=== PATIENT | female | born 1975 | race Caucasian/White ===

== ENCOUNTER 2018-07-29 12:20 | Outpatient (CLI) | END 2018-07-29 14:55 | disposition left against medical advice (07) ==

== ENCOUNTER 2018-07-30 05:02 | Inpatient (IN) | payer MEDICAID ==
--- NOTE | 2018-07-29 15:46 | PN ---
Triage Information Date/Time Reason for visit: Uterine contractions Weeks of Gestation 38+ /Para 4/2 Diabetes: none Hypertention: none Objective Heart Rate: 140's Contractions: 6-10 Minutes Apart Assessment/Plan Patient is admitted for 24 hours observation for her blood show/She left AMA She will follow up with her provider Precautions discussed Questions answered CHAD WALKER M.D. Jul 29, 2018 15:46
[~2018-07-30] VITALS: Ht 144.8 cm; Wt 63.0 kg
[~2018-07-30 05:02] MED LIST: PREN1TAB49
[2018-07-30] MEDS ORDERED: LACTATED RINGER'S 1,000 ML IV SCH (05:07)
[2018-07-30 05:11] VITALS: Ht 144.8 cm; Wt 63.0 kg
[2018-07-30] MEDS ORDERED: AMPICILLIN 2 GM/NS (PMX) 100 ML IV ONE (05:30)
[2018-07-30] MEDS ORDERED: CARBOPROST 250 MCG INJ IM PRN ×2 (05:30→07:00)
[2018-07-30] MEDS ORDERED: METHYLERGONOVINE 0.2 MG INJ IM PRN ×2 (05:30→07:00)
[2018-07-30] MEDS ORDERED: LIDOCAINE 1% (MPF) 30 ML INJ INJ PRN (05:30)
[2018-07-30] MEDS ORDERED: BUTORPHANOL 2 MG INJ IV PRN (05:30)
[2018-07-30] MEDS ORDERED: OXYTOCIN 30 UNITS/LR 500 ML IV PRN ×2 (05:30→07:00)
[2018-07-30] MEDS ORDERED: MISOPROSTOL 200 MCG TAB PR PRN ×2 (05:30→07:00)
[2018-07-30] MEDS ORDERED: OXYTOCIN 30 UNITS/LR 500 ML IV SCH ×2 (05:30)
--- NOTE | 2018-07-30 05:30 | TRIAGE ---
OB Triage Datetime Report Generated by CPN: 07/30/2018 05:30 Datetime: 07/30/2018 05:21 Vaginal Bleeding: None Level of Consciousness: Fully Conscious DTR's/Clonus: DTRs 2+; No Clonus Headache: Denies Blurred Vision: No Respiratory Effort: Unlabored; Regular Rhythm; Equal Expansion Breath Sounds, Left: Clear and Equal Breath Sounds, Right: Clear and Equal Nausea/Vomiting: Denies RUQ Epigastric Pain: Denies Facial Edema: None History of Falling: (0) No Secondary Diagnosis: (0) No Ambulatory Aid: (0) Bedrest/Nurse Assist Gait: (0) Normal/Bedrest/Immobile Mental Status: (0) Oriented to Own Ability Datetime: 07/30/2018 05:15 Time of Arrival: 07/30/2018 04:55 EGA: 38.1 Arrived By: Wheelchair Arrived From: Home Chief Complaint: SROM AT 0430 CLEAR, LOTS OF FLUID CONTRACTIONS SINCE YESTERDAY 1900 STATED SOMETHING IS COMING OUT Movement: Present Time Contractions Began: 07/29/2018 19:00 Rupture of Membranes: Ruptured Vaginal Discharge: Present Time Provider Notified: 07/30/2018 05:05 Provider Notified: CIRA Initial Plan: EFM, VE Datetime: 07/30/2018 05:00 Assessment Type: Triage Level of Consciousness: Fully Conscious DTR's/Clonus: DTRs 2+; No Clonus Headache: Denies Blurred Vision: No Respiratory Effort: Unlabored; Regular Rhythm; Equal Expansion Breath Sounds, Left: Clear and Equal Breath Sounds, Right: Clear and Equal Nausea/Vomiting: Denies RUQ Epigastric Pain: Denies Lower Extremities Edema: None Upper Extremities Edema: None Facial Edema: None History of Falling: (0) No Secondary Diagnosis: (0) No Ambulatory Aid: (0) Bedrest/Nurse Assist IV Therapy: (0) No Gait: (0) Normal/Bedrest/Immobile Mental Status: (0) Oriented to Own Ability Fall Score: 0 Fall Risk Score Definition: No Risk: No action required Datetime: 07/29/2018 13:08 Stage of : OB Triage Level of Consciousness: Fully Conscious Frequency: 2-7 Monitor Mode: External Duration (sec)2399: 40-100 Quality: Mild Resting Tone [place]: Relaxed FHR Baseline Rate: 145 Monitor Mode: External US Variability: Moderate 6-25 bpm Accelerations: 15X15 Decelerations: None Category: Category I Pain Scale: 0 Pain Goal: 3 Membrane Status: Intact Vaginal Bleeding: Scant Datetime: 07/29/2018 12:32 Fall Score: 0 Fall Risk Score Definition: No Risk: No action required Datetime: 07/29/2018 12:29 EGA: 38.0
--- NOTE | 2018-07-30 06:48 | HP ---
Date/Time of Note Date/Time of Note DATE: 07/30/18 TIME: 06:41 OB - History Hx of Present Free Text/Dictation 43 years old 4 para 20 1 1 with single intrauterine at 38 weeks and 1 day complaining of uterine contractions and leakage of fluid at 4:30 AM this morning. She states good movement. She denies nausea, vomiting, shortness of breath, chest pain, headache, visual changes, vaginal bleeding. Chief Complaint: Uterine contractions, leakage of fluid Estimated Due Date: Aug 12, 2017 : 4 Para: 2 Spontaneous : 1 Therapeutic : 0 Care: Good Care Ultrasounds: Normal mid trimester US Obstetrical Complications: None Medical Complications: None Past Family/Social History * Past Medical, Surgical, Family and Obstetric Histories reviewed from chart. OB Admission Exam Vital Signs Vital Signs Blood pressure 131/69, pulse rate 76/minutes, respiratory rate 16/minutes, temperature 98.3 Physical Exam HEENT: WNL Heart: Rhythm Normal Lungs: Clear Abdomen: WNL Extremities: Normal Cervical Dilatation: 7cm Effacement: Other (90%) Station: -2 Membranes: Intact Heart Rate: 130's Accelerations: Accelerations Present Decelerations: No Decelerations Varibility: Moderate Contractions on Admission: < 5 Minutes Apart Intensity: Firm Last 72 hours Lab Results CBC & BMP 07/30/18 05:00 OB Assessment/Plan Other plan: 43-year-old at 38 weeks and 1 day with spontaneous rupture of membranes in active labor - FHR: No sign of metabolic acidosis- Category I - Continuous EFM, toco - CBC, blood type and screen - Analgesia options with R/B/A discussed in detail with patient - Epidural per patient request - Please see the orders - Obtain records Admission, procedures, expectations, risks and possible complications have been discussed in detail with the patient. Risk of vaginal delivery including but not limited to bleeding, infection, cervical laceration, placental retention, injury to fetus, blood transfusion, blood transfusion related infection, risk of anesthesia, adhesion, cervical laceration, episiotomy/laceration, possible delivery with risk of bleeding, infection, injury to other organs (bowel, bladder, ureter, vessels, nerves), injury to fetus, blood transfusion, blood transfusion related infection, risk of anesthesia, scar and hernia formation, needs for future , removal of uterus or any other indicated surgery discussed with the patient. She expressed understanding and repeats the risks. All of her questions were answered. She signed the informed consent. PHYSICIAN'S VERIFICATION OF INFORMED CONSENT The patient was counseled regarding the procedure, its indications, risks, pote ntial complications and alternatives and any questions were answered. Consent was obtained. PLANNED PROCEDURE/TREATMENT: Vaginal delivery, episiotomy, repair of laceration possible delivery PEÑA AYALA Jul 30, 2018 06:48
[2018-07-30] MEDS ORDERED: DEXTROSE 5%-LR 1,000 ML IV SCH (06:51)
[2018-07-30] MEDS ORDERED: LACTATED RINGER'S 1,000 ML IV* SCH (06:51)
--- NOTE | 2018-07-30 06:51 | LDN ---
Date/Time of Note Date/Time of Note DATE: 07/30/18 TIME: 06:48 Delivery Summary 43-year-old at 38 weeks and 1 day delivered a viable female over intact perineum. Nose and mouth suctioned free. Rest of body delivered. Cord clamped and cut. Baby given to the nurse. Placenta delivered intact and spontaneously with three-vessel cord. Patient tolerated procedure well Time of delivery 05: 48 Weight 7 pounds 14 ounces - 3560 g 7 at 1 minutes and 9 at 5 minutes EBL 150 Weeks of Gestation 38 weeks and 1 day Placenta Delivered: Spontaneously Meconium: none Episiotomy: No Anesthesia type: None Estimated blood loss: 150 Sponge & Needle done & correct: Yes All needle counts correct: Yes Any foreign bodies felt in the: No Infant Delivery Information Sex Infant Sex: female Apgars 1 Minute: 7 5 Minute: 9 10 Minute: 10 Suctioning Nose & mouth suctioned at julio: Yes Umbilical Cord Umbilical cord with: 3 Vessels Cord presentations: no nuchal cord Cord Blood was obtained: Yes Mother & Baby Disposition Disposition Mom & Baby to Maternity; Good: Yes PEÑA AYALA Jul 30, 2018 06:51
[2018-07-30] MEDS ORDERED: DIBUCAINE 1% 30 GM OINT TOP PRN (07:00)
[2018-07-30] MEDS ORDERED: DIPHENHYDRAMINE 50 MG INJ IV PRN (07:00)
[2018-07-30] MEDS ORDERED: ZOLPIDEM 5 MG TAB PO PRN (07:00)
[2018-07-30] MEDS ORDERED: ONDANSETRON 4 MG INJ IV PRN (07:00)
[2018-07-30] MEDS ORDERED: OXYCODONE/ASPIRIN (4.88/325) TAB PO PRN (07:00)
[2018-07-30] MEDS ORDERED: ACETAMINOPHEN 325 MG TAB PO PRN (07:00)
[2018-07-30] MEDS ORDERED: WITCH HAZEL/GLYCERIN PAD PR PRN (07:00)
[2018-07-30] MEDS ORDERED: BENZOCAINE 20% 56 ML SPRAY TOP PRN (07:00)
[2018-07-30] MEDS ORDERED: IBUPROFEN 600 MG TAB ONE (07:51)
[2018-07-30] MEDS: IBUPROFEN 600 MG TAB PO SCH ×3 (07:54→17:57)
[2018-07-30 08:40] VITALS: BP 132/69; PULSE 71; RESP 18
--- NOTE | 2018-07-30 08:40 | NUR ---
RECEIVED PT TO ROOM 319 IN STABLE CONDITION. ORIENTED PT TO ROOM, BED CONTROLS, CALL LIGHT, PHONE TO CONTACT NURSE, NB EDUCATION CHANNEL, AND PLAN OF CARE. INSTRUCTED TO CALL NURSE FOR ASSISTANCE OOB AND WITH VOIDING. PT VERBALIZED UNDERSTANDING OF ALL INSTRUCTIONS.
[2018-07-30 09:10] VITALS: BP 137/67; PULSE 83; RESP 18
[2018-07-30] MEDS: LANOLIN HPA 1 PKT TOP PRN (09:24)
[2018-07-30] MEDS: SENNA/DOCUSATE NA (8.6MG/50MG) TAB PO PRN (09:25)
[2018-07-30] MEDS ORDERED: AMPICILLIN 1 GM/NS (PMX) 50 ML IV SCH (09:30)
[2018-07-30 12:31] VITALS: BP 120/67; PULSE 75; RESP 18
[2018-07-30 15:35] VITALS: BP 118/68; PULSE 78; RESP 18
--- NOTE | 2018-07-30 18:30 | NUR ---
EOSS: PT REMAINS STABLE. AMBULATING IN ROOM WITH STEADY GAIT AND VOIDING INDEPENDENTLY. AND BONDING WELL WITH INFANT.
[2018-07-30 20:00] VITALS: BP 115/64; PULSE 77; RESP 20
[2018-07-31] VITALS: BP 112/63; PULSE 91; RESP 18
[2018-07-31] MEDS: IBUPROFEN 600 MG TAB PO SCH ×4 (00:16→17:51)
[2018-07-31] MEDS: LANOLIN HPA 1 PKT TOP PRN (00:16)
[2018-07-31 04:00] VITALS: BP 115/63; PULSE 17; RESP 17
--- NOTE | 2018-07-31 05:43 | NUR ---
EOSS: PT IS STABLE. FUNDUS FIRM, BLEEDING NORMAL. UP AD JONATHAN. BREAST AND BOTTLE FEEDING. BONDING WELL WITH BABY.
[2018-07-31 09:00] VITALS: BP 130/75; PULSE 76; RESP 18
--- NOTE | 2018-07-31 12:02 | DS ---
Date/Time of Note Date/Time of Note DATE: 07/31/18 TIME: 12:01 Discharge Summary Admission/Discharge Info Admit Date/Time Jul 30, 2018 at 05:05 Discharge Date/Time Discharge Diagnosis term Patient Condition: Stable Hospital Course unremarkable Home Meds Reported Medications Vits W-Ca,Fe,Fa(<1MG) () 1 Tab Tablet 05/15/10 Discontinued Reported Medications Al Hydroxide/Mg Hydroxide (Maalox) 148 Ml Susp 05/15/10 Primary Care Provider Care Physician No Primary Pending Labs Laboratory Tests Test 07/31/18 06:03 07/31/18 06:28 Lab Scanned Report [facility]FER[facility] [id number] White Blood Count 7.5 10^3/ul (4.8-10.8) Red Blood Count 3.59 10^6/ul (4.20-5.40) Hemoglobin 10.8 g/dl (12.0-16.0) Hematocrit 32.5 % (37.0-47.0) Mean Corpuscular Volume 90.5 fl (82.0-101.0) Mean Corpuscular Hemoglobin 30.1 pg (29.0-33.0) Mean Corpuscular 33.2 g/dl (32.0-37.0) Hemoglobin Concent Red Cell Distribution Width 14.4 % (11.5-14.5) Platelet Count 242 10^3/UL (140-415) Mean Platelet Volume 10.4 fl (7.4-10.4) Immature Granulocytes % 0.400 % (0.001-0.429) Neutrophils % 65.8 % (39.0-77.0) Lymphocytes % 24.3 % (15.0-51.0) Monocytes % 8.4 % (0.0-11.0) Eosinophils % 0.7 % (0.0-7.0) Basophils % 0.4 % (0.0-2.0) Nucleated Red Blood Cells % 0.0 /100WBC (0.0-0.0) Immature Granulocytes # 0.030 10^3/ul (0.0-0.031) Neutrophils # 5.0 10^3/ul (1.6-7.5) Lymphocytes # 1.8 10^3/ul (0.8-2.9) Monocytes # 0.6 10^3/ul (0.3-0.9) Eosinophils # 0.1 10^3/ul (0.0-0.5) Basophils # 0.0 10^3/ul (0.0-0.1) Nucleated Red Blood Cells # 0.0 10^3/ul (0.0-0.0) TOMY DENIS MD Jul 31, 2018 12:02
[2018-07-31 15:49] VITALS: BP 131/80; PULSE 74; RESP 18
--- NOTE | 2018-07-31 17:59 | NUR ---
EOSS: PT IS STABLE, CBC WNL. FOUND NIPPLES SORE, RED, AND CRACKED. ASSISTED WITH A DEEPER LATCH. EDUCATED ABOUT LATCHING AND NIPPLE CARE. NO DISTRESS NOTED. Addendum: 07/31/18 at 1800 by CARLOS SAVAGE RN Amended: Links added.
[2018-07-31 20:00] VITALS: BP 123/81; PULSE 78; RESP 18
[2018-08-01] MEDS: IBUPROFEN 600 MG TAB PO SCH ×3 (00:12→11:51)
[2018-08-01] MEDS: SENNA/DOCUSATE NA (8.6MG/50MG) TAB PO PRN (00:12)
[2018-08-01 04:06] VITALS: BP 106/65; PULSE 74; RESP 18
--- NOTE | 2018-08-01 05:09 | NUR ---
EOSS: VS WNL VOIDING W/O DIFFICULTIES,HAD A BM,NIPPLES ARE LESS SORE PT VERBALIZED BABY LATCHING BETTER AFTER EDUCATION PROVIDED AND REINFORCED BY RN'S. GOOD BONDING WITH BABY .
[2018-08-01 08:00] VITALS: BP 136/85; PULSE 79; RESP 17
[2018-08-01] MEDS ORDERED: MEASLES,MUMPS,RUBELLA VACCINE INJ SC* ONE (09:00)
[2018-08-01] MEDS ORDERED: DIPHTH/TET/ACEL PERTUSS (ADULT) 0.5 ML VIAL IM* ONE (09:00)
--- NOTE | 2018-08-01 13:30 | NUR ---
DISCHARGE TEACHING COMPLETED WITH ON LINE BRICK BAKER IN [place]. RE ENFORCED TO MOM TO CALL DR. CLAY'S OFFICE AND SCHEDULE HER POST CHECK UP. MOM VERBALIZED UNDERSTANDING OF ALL DISCHARGE TEACHING. ID BANDS WERE MATCHED AND CUT AT TIME OF DISCHARGE. CORD CLAMP AND SENSOR WERE REMOVED. MOM ND BABY WERE DISCHARGED HOME IN STABLE CONDITION WITH ALL PERSONAL BELONGINGS PER WHEELCHAIR
== END 2018-08-01 13:50 | disposition home or self-care (01) | DRG 807 ==
LOC: OBT 05:02 → L-D 05:04 → OBT 05:05 → PP1 08:29
PROVIDERS: ADMIT Obstetrics & Gynecology; ATTEND Obstetrics & Gynecology
PROC: 10E0XZZ Delivery of Products of Conception, External Approach (ICD-10-PCS; principal; 2018-07-30)
DX: O80 Encounter for full-term uncomplicated delivery (principal); Z37.0 Single live birth; Z3A.38 38 weeks gestation of pregnancy
CPT/HCPCS: 85025; 85610; 85730; 86592; 86850; 86900; 86901; 87340; G0463; J0290; J2590; J7120; J7121